=== PATIENT | female | born 1970 | race Caucasian/White ===

== ENCOUNTER 2019-05-24 07:57 | Outpatient (REF) | payer BC, SELFPAY ==
[2019-05-24 13:34] LABS: Chol HDL Ratio 2.44 mg/dL (0.0-4.40); Cholesterol 176 mg/dL (0-200); Glucose 79 mg/dL (65-115); HDL Cholesterol 72 mg/dL (60-100); LDL Cholesterol Calculated 86 mg/dL (50-129); LDL HDL Ratio 1.19 RATIO (0.00-3.22); Thyroid Stimulating Hormone 2.42 uIU/mL (0.27-4.20); Triglycerides 88 mg/dL (0-150)
[2019-05-24 13:47] LABS: Estmated Average Glucose 103; Hemoglobin A1C 5.2 % (4.0-6.0)
== END 2019-05-24 07:58 | disposition home or self-care (01) ==
LOC: LAB 07:57
PROVIDERS: Family Provider Family Medicine; Visit Provider Dermatology
DX: Z01.89 Encounter for other specified special examinations (principal)
CPT/HCPCS: 80061; 82947; 83036; 84443

== ENCOUNTER 2019-05-28 08:41 | Outpatient (CLI) | payer BC, SELFPAY ==
--- NOTE | 2019-05-28 08:45 | MM_ITS ---
WS: [id number] BILATERAL SCREENING DIGITAL MAMMOGRAM WITH CAD HISTORY: SCREENING COMPARISON: 03/09/2016 and 04/07/2016 Bilateral CC and MLO views submitted. Computer aided detection analyzed. Breast composition: There are scattered areas of fibroglandular density. No suspicious masses, microc alcifications or architectural distortion. Asymmetry and 7 mm mass in the central lateral RIGHT breas t are stable since 2016. MM/[id number] IMPRESSION: BI-RADS: 2-Benign FOLLOW UP: 1 Year Follow-up
== END 2019-05-28 08:42 | disposition home or self-care (01) ==
LOC: RADSHAW 08:41
PROVIDERS: Family Provider Family Medicine; PCP Family Medicine; Visit Provider Family Medicine
DX: Z12.31 Encounter for screening mammogram for malignant neoplasm of breast (principal)
CPT/HCPCS: 77067